=== PATIENT | male | born 1985 | race Caucasian/White ===

== ENCOUNTER 2022-09-24 08:24 | Emergency (ER) | payer BC ==
[2022-09-24 08:34] VITALS: BP 151/98; PULSE 108; RESP 18; TEMP 98.9; BMI 45.4
[2022-09-24] MEDS ORDERED: SODIUM CHLORIDE 1,000 ML IV STA (08:35)
[2022-09-24 09:33] LABS: BILIRUBIN,TOTAL 0.9 mg/dl (0.2-1); CREATININE 0.8 mg/dl (0.55-1.3); TOT PROT 7.6 g/dl (6.4-8.2)
[2022-09-24] MEDS ORDERED: metroNIDAZOLE 250 MG TABLET PO ONE (11:38)
[2022-09-24 11:50] LABS: BASO % 0.3 % (0-2.0); EOS % 0.3 % (0-4.5); HEMATOCRIT 43.2 % (35.4-49); HEMOGLOBIN 14.9 GM/dL (11.7-16.9); LYMPH % 12.1 % (8-40); MCH 29.3 pg (25.7-33.7); MCHC 34.4 g/dl (32.0-35.9); MONO % 4.8 % (3.8-10.2); NEUT % 82.5 % (42.8-82.8); PLATELET COUNT 321 10^3/uL (134-434); RBC 5.09 M/mm3 (4.00-5.60); RDW 13.2 % (11.9-15.9); WHITE BLOOD COUNT 12.5 K/mm3 (4.0-10.0)
[2022-09-24] MEDS ORDERED: metroNIDAZOLE 250 MG TABLET ONE (11:52)
== END 2022-09-24 12:27 | disposition home or self-care (01) ==
LOC: FER 08:24
PROC: 3E0337Z Introduction of Electrolytic and Water Balance Substance into Peripheral Vein, Percutaneous Approach (ICD-10-PCS; principal; 2022-09-24)
DX: K57.92 Diverticulitis of intestine, part unspecified, without perforation or abscess without bleeding (principal)
CPT/HCPCS: 36415; 74177-TC; 80053; 81003; 83690; 85025; 87086; 99285-25; Q9967